=== PATIENT | female | born 1995 | race Two or more races ===

== ENCOUNTER 2021-06-10 04:38 | Day surgery (SDC) | payer OTHER ==
[2021-06-07 15:52] VITALS: BMI 26.9
[2021-06-10] MEDS ORDERED: BUPIVACAINE HCL/PF 0.5% (5MG/ML) 10 ML VIAL ONE (07:15)
[2021-06-10] MEDS ORDERED: BUPIVACAINE LIPOSOME/PF (EXPAREL) 266 MG/20 ML VIAL ONE (07:15)
[2021-06-10] MEDS ORDERED: LIDOCAINE HCL/PF 2% SDV 5ML VIAL ONE (07:22)
[2021-06-10] MEDS ORDERED: ROCURONIUM BROMIDE 50 MG/5 ML SYRINGE ONE (07:22)
[2021-06-10] MEDS ORDERED: PROPOFOL 20 ML ONE ×3 (07:22→11:27)
[2021-06-10] MEDS ORDERED: MIDAZOLAM HCL 2 MG/2 ML SINGLE DOSE VIAL ONE ×3 (07:22→11:26)
[2021-06-10] MEDS ORDERED: ceFAZolin SODIUM 1 GM VIAL IVPB ONE (08:15)
[2021-06-10] MEDS ORDERED: ACETAMINOPHEN INJECTION 100 ML IVPB ONE ×2 (09:05→11:55)
[2021-06-10] MEDS ORDERED: KETOROLAC TROMETHAMINE 30 MG/1 ML VIAL ONE (09:37)
[2021-06-10] MEDS ORDERED: ceFAZolin SODIUM 1 GM VIAL ONE ×2 (09:37→11:48)
[2021-06-10] MEDS ORDERED: GLYCOPYRROLATE 0.2 MG/1 ML VIAL ONE (09:52)
[2021-06-10] MEDS ORDERED: NEOSTIGMINE METHYLSULFATE 0.5 MG/ML - 10 ML MDV ONE (09:52)
[2021-06-10] MEDS ORDERED: ONDANSETRON 4 MG/2 ML VIAL IVPUSH PRN (10:19)
[2021-06-10] MEDS ORDERED: oxyCODONE HCL 5 MG TABLET PO PRN (10:19)
[2021-06-10] MEDS ORDERED: LACTATED RINGERS SOLUTION 1,000 ML IV SCH (10:30)
[2021-06-10] MEDS ORDERED: oxyCODONE HCL 5 MG TABLET ONE (12:08)
[2021-06-10 13:17] VITALS: BP 112/72; PULSE 70; TEMP 98
== END 2021-06-10 13:10 | disposition home or self-care (01) ==
LOC: JASU-SURG 04:38
PROVIDERS: ATTEND Obstetrics & Gynecology
PROC: 0UDB8ZX Extraction of Endometrium, Via Natural or Artificial Opening Endoscopic, Diagnostic (ICD-10-PCS; 2021-06-10)
PROC: 0UB04ZZ Excision of Right Ovary, Percutaneous Endoscopic Approach (ICD-10-PCS; principal; 2021-06-10 07:30)
PROC: 8E0W4CZ Robotic Assisted Procedure of Trunk Region, Percutaneous Endoscopic Approach (ICD-10-PCS; 2021-06-10 07:30)
PROC: 0UB98ZX Excision of Uterus, Via Natural or Artificial Opening Endoscopic, Diagnostic (ICD-10-PCS; 2021-06-10 07:30)
DX: N83.201 Unspecified ovarian cyst, right side (principal); N84.0 Polyp of corpus uteri; N80.0 Endometriosis of uterus
CPT/HCPCS: 58558; 58662; S2900; 81025; 88305-TC; 94760

== ENCOUNTER 2022-07-04 10:43 | Inpatient (IN) | payer BC ==
[2022-07-04 11:59] LABS: BASO % 0.1 % (0-2.0); EOS % 1.5 % (0-4.5); HEMATOCRIT 34.5 % (32.4-45.2); HEMOGLOBIN 11.9 GM/dL (10.7-15.3); LYMPH % 25.3 % (8-40); MCH 30.5 pg (25.7-33.7); MCHC 34.6 g/dl (32.0-36.0); MEAN CELL VOLUME 88.3 fl (80-96); MEAN PLT VOLUME 8.3 fl (7.5-11.1); MONO % 7.1 % (3.8-10.2); PLATELET COUNT 260 10^3/uL (134-434); RBC 3.91 M/mm3 (3.60-5.2); RDW 13.8 % (11.6-15.6); WHITE BLOOD COUNT 6.7 K/mm3 (4.0-10.0)
[2022-07-04 12:00] LABS: INR 0.96 (0.83-1.09); PROTHROMBIN TIME (PATIENT) 11.1 SEC (9.7-13.0)
[2022-07-04 12:03] LABS: ACTIVATED PTT 26.9 SECONDS (25.2-36.5)
[2022-07-04 12:22] LABS: CALCIUM 9.4 mg/dL (8.5-10.1)
[2022-07-04 12:23] LABS: BLOOD UREA NITROGEN 8.8 mg/dL (7-18)
[2022-07-04 12:26] LABS: CREATININE 0.6 mg/dL (0.55-1.3)
[2022-07-06] MEDS ORDERED: PROMETHAZINE HCL 25 MG/1 ML VIAL IVPB ONE (20:24)
[2022-07-06] MEDS ORDERED: BUTORPHANOL TARTRATE 2 MG/ML VIAL IVPB PRN (20:24)
[2022-07-06] MEDS ORDERED: SODIUM PHOSPHATE/NA BIPHOS 133 ML ENEMA RC ONE (20:26)
[2022-07-06] MEDS: ELECTROLYTE-148 SOLN 1,000 ML IV SCH (20:30)
[2022-07-06] MEDS ORDERED: DINOPROSTONE 10 MG VAGINAL SUPPOSITORY VG ONE (21:00)
[2022-07-06 21:26] VITALS: BMI 39.0
[2022-07-07] MEDS: ELECTROLYTE-148 SOLN 1,000 ML IV SCH ×2 (03:00→17:30)
[2022-07-07] MEDS ORDERED: OXYTOCIN 30 UNITS in 0.9% NS 30 UNIT/500 ML INFUS.BAG IVPB SCH (07:45)
[2022-07-07] MEDS ORDERED: OXYTOCIN 30 UNITS in 0.9% NS 30 UNIT/500 ML INFUS.BAG IVPB ONE (08:15)
[2022-07-07] MEDS ORDERED: FENTANYL/BUPIVACAINE/NS/PF - PCEA - 50 ML DISP.SYRIN EP ONE ×3 (12:56→20:49)
[2022-07-07] MEDS ORDERED: BUPIVACAINE HCL/PF 0.25% (2.5MG/ML) 10 ML VIAL ONE ×2 (13:16→20:43)
[2022-07-07] MEDS ORDERED: FENTANYL CITRATE/PF 50 MCG/ML VIAL ONE ×2 (13:16→20:43)
[2022-07-07] MEDS: FENTANYL/BUPIVACAINE/NS/PF - PCEA - 50 ML DISP.SYRIN EP SCH ×2 (13:30→18:00)
[2022-07-07] MEDS ORDERED: NALOXONE HCL 0.4 MG/ML VIAL IVPUSH PRN (13:41)
[2022-07-07] MEDS ORDERED: LIDOCAINE HCL 1% PRESERVATIVE FREE - 30ML VIAL ONE (19:40)
[2022-07-07] MEDS ORDERED: OXYTOCIN 20 UNITS in 0.9% NS 20 UNIT/1,000 ML INFUS.BAG IV ONE (19:41)
[2022-07-07] MEDS ORDERED: OXYTOCIN 20 UNITS in 0.9% NS 20 UNIT/1,000 ML INFUS.BAG IV SCH (23:45)
[2022-07-07] MEDS ORDERED: ACETAMINOPHEN 325 MG TABLET (FP) PO PRN (23:55)
[2022-07-07] MEDS ORDERED: BENZOCAINE 20% 57 GM BOTTLE TP PRN (23:55)
[2022-07-07] MEDS ORDERED: METHYLERGONOVINE MALEATE 0.2 MG/1 ML AMP IM PRN (23:55)
[2022-07-07] MEDS ORDERED: BISACODYL 10 MG SUPP.RECT RC PRN (23:55)
[2022-07-07] MEDS ORDERED: WITCH HAZEL 50% (TUCKS) 40 PAD/JAR PAD TP PRN (23:55)
[2022-07-07] MEDS ORDERED: BENZOCAINE 28 GM HEMORRHOIDAL OINTMENT TP PRN (23:55)
[2022-07-07] MEDS ORDERED: oxyCODONE HCL 5 MG TABLET PO PRN (23:55)
[2022-07-08 00:24] LABS: CORD HCO3 19.6 mmHg (20-29); CORD PCO2 52.4 mmHg (30-78); CORD pH 7.191 (7.14-7.44)
[2022-07-08 00:25] LABS: CORD BASE EXCESS -4.6 mmol/L (0-2); CORD HCO3 20.5 mmHg (20-29); CORD PCO2 38.5 mmHg (30-78); CORD pH 7.344 (7.14-7.44)
[2022-07-08] MEDS: ELECTROLYTE-148 SOLN 1,000 ML IV SCH (01:21)
[2022-07-08 02:44] VITALS: RESP 18
[2022-07-08] MEDS: IBUPROFEN 600 MG TABLET (FP) PO PRN (03:04)
[2022-07-08] MEDS: FERROUS SO4 325 MG TABLET (FP) PO SCH ×3 (08:13→17:18)
[2022-07-08 09:01] LABS: BASO % 0.9 % (0-2.0); EOS % 0.2 % (0-4.5); HEMATOCRIT 31.4 % (32.4-45.2); HEMOGLOBIN 11.1 GM/dL (10.7-15.3); LYMPH % 11.4 % (8-40); MCHC 35.3 g/dl (32.0-36.0); MEAN CELL VOLUME 87.7 fl (80-96); MEAN PLT VOLUME 9.5 fl (7.5-11.1); MONO % 6.5 % (3.8-10.2); PLATELET COUNT 227 10^3/uL (134-434); RBC 3.57 M/mm3 (3.60-5.2); RDW 13.7 % (11.6-15.6); WHITE BLOOD COUNT 14.5 K/mm3 (4.0-10.0)
[2022-07-08] MEDS: PRENATAL VITAMINS W/ FOLIC ACID TABLET (FP) PO SCH (09:20)
[2022-07-08] MEDS ORDERED: SENNOSIDES/DOCUSATE COMBO (SENNA PLUS) TABLET (UD) PO PRN (22:00)
[2022-07-09] MEDS: FERROUS SO4 325 MG TABLET (FP) PO SCH ×2 (09:29→12:24)
[2022-07-09] MEDS: IBUPROFEN 600 MG TABLET (FP) PO PRN (09:29)
[2022-07-09] MEDS: PRENATAL VITAMINS W/ FOLIC ACID TABLET (FP) PO SCH (09:29)
[2022-07-09 10:34] VITALS: BP 105/64; PULSE 76; TEMP 98.2
== END 2022-07-09 13:15 | disposition home or self-care (01) | DRG 807 ==
LOC: JPSTI 10:43 → JLDR 07-06 18:22 → J3W 07-08 01:41
PROVIDERS: ADMIT Obstetrics & Gynecology; ATTEND Obstetrics & Gynecology
PROC: 3E0P7VZ Introduction of Hormone into Female Reproductive, Via Natural or Artificial Opening (ICD-10-PCS; 2022-07-06)
PROC: 10E0XZZ Delivery of Products of Conception, External Approach (ICD-10-PCS; principal; 2022-07-07)
PROC: 0KQM0ZZ Repair Perineum Muscle, Open Approach (ICD-10-PCS; 2022-07-07)
PROC: 0W8NXZZ Division of Female Perineum, External Approach (ICD-10-PCS; 2022-07-07)
DX: O70.1 Second degree perineal laceration during delivery (principal); Z37.0 Single live birth; Z3A.38 38 weeks gestation of pregnancy
CPT/HCPCS: 36415; 36600; 80048; 82803; 85025; 85610; 85730; 86780; 86850; 86900; 86901; C9803-CS; U0003; U0005